=== PATIENT | female | born 2005 | race Two or more races ===

== ENCOUNTER 2025-03-24 12:36 | Emergency (ER) | payer MEDICAID, SELFPAY ==
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
[2025-03-24 13:13] VITALS: BP 134/90; PULSE 85; RESP 18; TEMP 37.2; O2SAT 97; BMI 33.4
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
[2025-03-24 14:13] LABS: Basophils % (Auto) 0 % (0-2.5); Eosinophils # (Auto) 0.1 Thou/mm3 (0.0-0.5); Eosinophils % (Auto) 1 % (0-10); Hematocrit 45.2 % (36.0-46.0); Hemoglobin 15.3 g/dL (12.0-16.0); Immature Granulocytes % (Auto) 0 % (0-0); Immature Granulocytes Auto 0.03 Thou/mm3 (0.00-0.00); Lymphocytes # (Auto) 1.1 Thou/mm3 (1.0-4.8); Lymphocytes % (Auto) 12 % (10-50); Mean Corpuscular HGB Conc 33.8 g/dl (31.0-37.0); Mean Corpuscular Volume 83 fL (80-100); Monocytes # (Auto) 1.2 Thou/mm3 (0.0-0.8); Monocytes % (Auto) 13 % (0-12); Neutrophils # (Auto) 7.2 Thou/mm3 (1.8-7.7); Neutrophils % (Auto) 74 % (37-80); Nucleated Red Blood Cell % 0 /100 WBC (0); Platelet Count 265 Thou/mm3 (140-440); RDW Standard Deviation 43.5 fL (36.4-46.3); Red Blood Count 5.47 Miln/mm3 (4.00-5.20); White Blood Count 9.7 Thou/mm3 (3.6-11.0)
[2025-03-24 14:26] LABS: Alanine Aminotransferase 29 U/L (10-49); Albumin, Serum 4.6 gm/dL (3.5-5.0); Albumin/Globulin Ratio 1.4 (1.2-2.2); Alkaline Phosphatase 120 U/L (46-116); Anion Gap 9 (7-16); Aspartate Amino Transferase 31 U/L (0-34); BUN/Creatinine Ratio 13 Ratio (12-20); Bilirubin,Total 1.2 mg/dL (0.3-1.2); Blood Urea Nitrogen 10 mg/dL (9-23); Calcium 9.2 mg/dL (8.3-10.6); Calcium (Corrected) 9.2 mg/dL (8.5-10.1); Carbon Dioxide 28.2 mMol/L (20.0-31.0); Chloride 103 mMol/L (98-107); Creatinine (Component) 0.8 mg/dL (0.6-1.3); Estimated Creatinine Clearance 137.4 mL/min (>60); Globulin 3.4 gm/dL (2.3-3.5); Glucose 105 mg/dL (74-106); Osmolality,Calculated 278 (275-295); Potassium 4.5 mMol/L (3.4-5.1); Sodium 140 mMol/L (136-145); eGFR > 60 See Note
--- NOTE | 2025-03-24 14:55 | PC.CC ---
Addendum entered by Amanda Anderson RN 03/24/25 18:40: 1839 called [facility] to inform supervisor concrete stone finishing time, left VM. Addendum entered by Amanda Anderson RN 03/24/25 18:39: [address] [facility] through [employer]. Called [facility] and set up the transport. The supervisor concrete stone finishing time is 1945. 1800 transfer packet is complete with CD inside including all signatures. Gave transfer packet to charge nurse. Notified bedside nurse of the transfer packet and number to call for report. 1708 received call from Renetta at [facility] that pt is accepted for ER to ER transfer. Accepted by Krystle Lacy. Call report at [phone]. Addendum entered by Amanda Anderson RN 03/24/25 16:59: 1654 received call from Alda at [facility] and initiated the transfer. She stated she wants to speak with Dr. Larkin, conference call connected. She then connected her neuro-surgery Dr. Klein for peer to peer. Dr. Klein stated it's beyond his capability, pt needs HLOC and transfer request is denied. Addendum entered by Amanda Anderson RN 03/24/25 16:51: 1640 images pushed to [facility]. Addendum entered by Amanda Anderson RN 03/24/25 16:50: 1636 Called [facility], spoke to Renetta and initiated the transfer. She stated she wants to speak with Dr. Larkin, conference call connected. Addendum entered by Amanda Anderson RN 03/24/25 16:36: 1636 called [facility] to initiate the transfer, left VM. Addendum entered by Amanda Anderson RN 03/24/25 15:45: 1540 clinicals sent to [facility] and [facility]. Due to unable to print any clinicals and working with IT and ACS to resolve the issue. Unable to send clinicals for transfer, informed ED charge nurse. Original Note: 1455 received orders to transfer the pt for acute nondisplaced fracture anterior ring C1, acute comminuted fractures bases of the odontoid, the upper odontoid displaced anteriorly 2.5 mm relative to the body of C2 needs neuro-surgery.
[2025-03-24 15:04] VITALS: BP 134/89; PULSE 75; RESP 18; TEMP 37.1; O2SAT 98
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
--- NOTE | 2025-03-24 18:32 | PC.NURSE ---
[facility]
[2025-03-24 18:36] VITALS: BP 128/82; PULSE 87; RESP 18; TEMP 37.1; O2SAT 96
== END 2025-03-24 19:11 | disposition short-term general hospital (02) ==
PROVIDERS: Nurse Practitioner Family; Emergency Provider Emergency Medicine
DX: S12.000A Unspecified displaced fracture of first cervical vertebra, initial encounter for closed fracture (principal); S12.100A Unspecified displaced fracture of second cervical vertebra, initial encounter for closed fracture; V49.9XXA Car occupant (driver) (passenger) injured in unspecified traffic accident, initial encounter
CPT/HCPCS: 36415; 70450; 72125; 80053; 85025; 99285